=== PATIENT | male | born 1985 | race Caucasian/White ===

== ENCOUNTER 2017-08-30 07:17 | Day surgery (SDC) | payer OTHER ==
[~2017-08-30 07:17] MED LIST: BUPIVACAINE 0.5% (SDV) 30 ML, morphine SULFATE (PF) 8 MG, EPINEPHrine 0.3 MG, CLONIDINE... IRR; CEFAZOLIN 1 GM INJ; ROCURONIUM 50 MG INJ; TRANEXAMIC ACID 1,000 MG in DEXTROSE 5% 100 ML IVPB
[2017-08-30] MEDS: DEXAMETHASONE 1 MG TAB PO (07:57)
[2017-08-30] MEDS: GABAPENTIN 300 MG CAP PO (07:58)
[2017-08-30] MEDS ORDERED: LIDOCAINE 2% (SDV) 5 ML INJ (09:43)
[2017-08-30] MEDS ORDERED: ROCURONIUM 50 MG INJ (09:43)
[2017-08-30] MEDS ORDERED: FENTAnyl 50 MCG/ML VIAL (09:43)
[2017-08-30] MEDS ORDERED: PROPOFOL 20 ML (09:43)
[2017-08-30] MEDS ORDERED: ACETAMINOPHEN 1000MG/100ML IV 100 ML (09:45)
[2017-08-30] MEDS ORDERED: HYDROmorphONE (0.2 MG/ML) 10ML SYG IV ×3 (10:00)
[2017-08-30] MEDS ORDERED: ONDANSETRON 4 MG INJ IV (10:00)
[2017-08-30] MEDS ORDERED: OXYCODONE/ACETAMINOPHEN (5/325) TAB PO ×2 (10:00)
[2017-08-30] MEDS ORDERED: LABETALOL HCL 20MG INJ IV (10:00)
[2017-08-30] MEDS ORDERED: EPHEDrine SULFATE 50 MG/5 ML SYG IV (10:00)
[2017-08-30] MEDS ORDERED: KETOROLAC 30 MG INJ IV (10:00)
[2017-08-30] MEDS ORDERED: MEPERIDINE 25 MG INJ IV (10:00)
[2017-08-30] MEDS ORDERED: METOCLOPRAMIDE 10 MG INJ IV (10:00)
[2017-08-30] MEDS ORDERED: FENTAnyl 50 MCG/ML VIAL IV ×3 (10:00)
[2017-08-30] MEDS ORDERED: ALBUTEROL 0.083% (NEB) 2.5 MG/3 ML AMP HHN (10:00)
[2017-08-30] MEDS ORDERED: hydrALAzine 20 MG INJ IV (10:00)
[2017-08-30] MEDS ORDERED: DIPHENHYDRAMINE 50 MG INJ IV (10:00)
[2017-08-30] MEDS ORDERED: ROPIVACAINE 0.5 % 30 ML VIAL (10:07)
[2017-08-30] MEDS: CEFAZOLIN 2 GM/50 ML (PMX) 50 ML IVPB (10:10)
[2017-08-30] MEDS ORDERED: morphine 10 MG INJ (10:12)
[2017-08-30] MEDS: CA CHLORIDE 10% 10 ML SYRINGE (10:50)
[2017-08-30] MEDS: THROMBIN 5000 UNIT VIAL (10:50)
[2017-08-30] MEDS: POLYMYXIN/BACITRACIN 1L IRRIG (10:51)
[2017-08-30] MEDS ORDERED: KETOROLAC 30 MG INJ (10:57)
[2017-08-30] MEDS: MIDAZOLAM 1 MG/ML 2 ML INJ IV (12:19)
== END 2017-08-30 13:15 | disposition home or self-care (01) ==
LOC: SDS 07:17
DX: S73.192A Other sprain of left hip, initial encounter (principal); X58.XXXA Exposure to other specified factors, initial encounter; M70.72 Other bursitis of hip, left hip
CPT/HCPCS: 27060; 86999